=== PATIENT | male | born 1995 | race Caucasian/White ===

== ENCOUNTER 2016-10-05 21:35 | Emergency (ER) | payer MEDICAID, OTHER ==
[~2016-10-05] VITALS: Ht 165.1 cm; Wt 72.0 kg
[~2016-10-05 21:35] MED LIST: ACET325T33 PO; ACET500C5 PO; ALPR0.25 PO; FIORICET PO; HYDR-3498 PO; HYDR-3720 PO; IBUP-1542 PO; IBUP800T25 PO
[2016-10-05 21:38] VITALS: Ht 165.1 cm; Wt 72.0 kg
[2016-10-05] MEDS ORDERED: NAPR-260 PO (21:51)
[2016-10-05] MEDS ORDERED: IBUP-1542 PO (21:54)
--- NOTE | 2016-10-05 22:04 | ERD ---
ER Documentation Chief Complaint Date/Time DATE: 10/05/16 TIME: 21:57 Chief Complaint pain/swelling right forearm x 1 week. denies injury HPI 20-year-old male presents to ED with chief complaint of right forearm and thumb pain times one week. He denies any recent trauma or injury. Associated symptoms include some mild swelling around his forearm. States the pain is aggravated by moving his arm and washing dishes at work. 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 He denies fever, chills, redness, numbness, and loss of range of motion. Currently rates his pain a 5 out of 10 in severity. Has not tried any medications for relief of symptoms. ROS All systems reviewed and are negative except as per history of present illness. Medications Home Meds Active Scripts Ibuprofen* (Motrin*) 600 Mg Tab, 600 MG PO Q6, #30 TAB Prov:Christelle Perez PA-C 10/05/16 Naproxen* (Naprosyn*) 500 Mg Tablet, 500 MG PO BID Y for PAIN AND/OR INFLAMMATION, #30 TAB Prov:Christelle Perez PA-C 10/05/16 Acetaminophen* (Tylenol*) 325 Mg Tablet, 2 TAB PO Q8 Y for PAIN AND OR ELEVATED TEMP, #20 TAB Prov:MORTEZACHUCK DO 10/01/15 Ibuprofen* (Motrin*) 600 Mg Tab, 600 MG PO Q8, #10 TAB Prov:MORTEZACHUCK DO 10/01/15 Ibuprofen* (Motrin*) 800 Mg Tab, 800 MG PO Q6H Y for PAIN AND OR ELEVATED TEMP, #30 TAB Prov:RAH BHARDWAJ COMMANDING OFFICER [employer] 09/19/15 Alprazolam* (Xanax*) 0.25 Mg Tablet, 0.25 MG PO Q8H Y for ANXIETY, #10 TAB Prov:JYOTIOS,APOSTOLOS A. DO 09/05/15 Hydrocodone Bit-Acetaminophen* ([place]*) 7.5-325 Tablet, 1 TAB PO Q4H Y for PAIN , #14 TAB Prov:LEKKOS,APOSTOLOS A. DO 09/05/15 Acetamin/Butalbital/Caffeine* (Fioricet*) 1 Tab Tab, 1 TAB PO Q4H Y for PAIN LEVEL 1-5, #30 TAB Prov:CUISAUROLEILANI ODESSA Jain COMMANDING OFFICER [employer] 06/15/15 Acetamin/Butalbital/Caffeine* (Fioricet*) 1 Tab Tab, 1 TAB PO Q4H Y for PAIN LEVEL 1-5, #10 TAB Prov:SANJUANITA SORIA PA-C 06/15/15 Hydrocodone Bit-Acetaminophen* ([place]*) 5-325 Mg Tab, 1 TAB PO Q6 Y for PAIN, # 3 TAB Prov:SANJUANITA SORIA PA-C 06/15/15 Acetaminophen* (Tylophen*) 500 Mg Capsule, 1 CAP PO Q6H Y for PAIN AND OR ELEVATED TEMP, #20 CAP Prov:XIMENA VIRK 01/23/15 Hydrocodone Bit-Acetaminophen* ([place]*) 5-325 Mg Tab, 1 TAB PO Q6 Y for PAIN, # 7 TAB Prov:XIMENA VIRK 01/23/15 Allergies Allergies: Coded Allergies: No Known Allergy (Unverified , 10/05/16) PMhx/Soc History of Surgery: No Anesthesia Reaction: No Hx Neurological Disorder: No Hx Respiratory Disorders: No Hx Cardiac Disorders: No Hx Psychiatric Problems: No Hx Miscellaneous Medical Probl: Yes (frequent headaches for past 10 months) Hx Alcohol Use: Yes (occassional) Hx Substance Use: No Hx Tobacco Use: No Physical Exam Vitals Vital Signs Date Time Temp Pulse Resp B/P Pulse Ox O2 Delivery O2 Flow Rate FiO2 10/05/16 21:38 97.9 87 20 115/63 98 Physical Exam GENERAL: Non-toxic. No apparent signs of distress. LUNGS: Clear to auscultation. No accessory muscle use. No wheezing, no crackles. No signs or symptoms of respiratory distress. HEART: Regular rate and rhythm. No murmurs, clicks, rubs or gallops. EXTREMITIES: No peripheral cyanosis or edema. No focal pain or notable trauma. Full range of motion. Good capillary refill. Mountainous palpation over right distal forearm. Positive Silvia's test on right side. 2+ radial pulses, full sensation intact in bilateral upper extremities. Equal coating and embossing unit operator strength bilaterally. NEURO: The patient moves all 4 extremities with 5/5 strength. Cranial nerves are grossly intact. Normal mental status for age. Good muscle tone. SKIN: There is no apparent rash, petechiae, erythema or swelling. Good skin turgor. Procedures/MDM Patient complains of pain in his right forearm and thumb, his occupation as a driller helper. He denies any recent trauma or injury. Pain is aggravated when moving his arm repetitively or washing dishes. On examination he is full range of motion in bilateral upper extremities including elbows wrists and hands. Equal bilateral coating and embossing unit operator strength. 2+ radial pulse, good cap refill, and sensation is intact. There are no obvious evidence of trauma, no ecchymosis, no erythema, no swelling. Denies fevers and chills. Based on patient's history and physical exam findings including a positive Silvia test, symptoms are likely due to tenosynovitis. I've explained to the patient that this is often caused by repetitive arm and hand movements. Suggested use of a Velcro wrist splint or Jose Luis wrap, NSAIDs and limitations of repetitive arm/hand movements when possible outside of work. At this time was suspicion for cellulitis, osteomyelitis, fracture, dislocation , compartment syndrome, and neurovascular compromise. Patient given Rx for naproxen and ibuprofen. Strict return precautions discussed. At this time patient is stable for discharge and outpatient management. Advised to follow-up with PCP or outpatient clinic in 1-2 days, list of clinics provided. Departure Diagnosis: Primary Impression: Pain of right arm Additional Impression: Tenosynovitis of forearm Condition: Good Patient Instructions: What Is [place] Tenosynovitis? Referrals: [facility] YOU HAVE RECEIVED A MEDICAL SCREENING EXAM AND THE RESULTS INDICATE THAT YOU DO NOT HAVE A CONDITION THAT REQUIRES URGENT TREATMENT IN THE EMERGENCY DEPARTMENT. FURTHER EVALUATION AND TREATMENT OF YOUR CONDITION CAN WAIT UNTIL YOU ARE SEEN IN YOUR DOCTORS OFFICE WITHIN THE NEXT 1-2 DAYS. IT IS YOUR RESPONSIBILITY TO MAKE AN APPOINTMENT FOR FOLOW-UP CARE. IF YOU HAVE A PRIMARY DOCTOR --you should call your primary doctor and schedule an appointment IF YOU DO NOT HAVE A PRIMARY DOCTOR YOU CAN CALL OUR PHYSICIAN REFERRAL HOTLINE AT IF YOU CAN NOT AFFORD TO SEE A PHYSICIAN YOU CAN CHOSE FROM THE FOLLOWING [facility] [address] [facility]. [facility] [address] [facility] [address] [facility] [address] [facility] [address] [facility]. [facility] [address] Additional Instructions: Call your primary care doctor TOMORROW for an appointment during the next 1-2 days.See the doctor sooner or return here if your condition worsens before your appointment time. Christelle Perez PA-C Oct 05, 2016 22:04
== END 2016-10-05 21:54 | disposition home or self-care (01) ==
LOC: E/R 21:35
DX: M79.601 Pain in right arm (principal); M65.9 Synovitis and tenosynovitis, unspecified
CPT/HCPCS: 99283

== ENCOUNTER 2016-10-14 03:16 | Emergency (ER) | payer MEDICAID ==
[~2016-10-14] VITALS: Ht 165.1 cm; Wt 73.0 kg
[~2016-10-14 03:16] MED LIST changes: +NAPR-260 PO
[2016-10-14 03:21] VITALS: Ht 165.1 cm; Wt 73.0 kg
[2016-10-14] MEDS ORDERED: SULF1TAB31 PO (03:38)
[2016-10-14] MEDS ORDERED: FLUC150T17 PO (03:38)
[2016-10-14] MEDS ORDERED: CEPH-443 PO (03:38)
[2016-10-14] MEDS ORDERED: CLOT30CR24 TOP (03:38)
--- NOTE | 2016-10-14 03:49 | ERD ---
ER Documentation Chief Complaint Date/Time DATE: 10/14/16 TIME: 03:44 Chief Complaint pain/scab left foot x 10 days HPI 20-year-old male presents here in emergency department for complaints of wounds in between the webs of the toes of the left foot, some lesions and scabs, and platelets of pain on affected area, burning pain, 8/10 scale, is worse upon touching the area. Patient wears tight shoes, is moist toes most of the time. Patient took ibuprofen and naproxen for pain with mild relief. Patient denies any numbness or tingling. ROS All systems reviewed and are negative except as per history of present illness. Medications Home Meds Active Scripts Cephalexin* (Keflex*) 500 Mg Capsule, 500 MG PO QID for 10 Days, CAP Prov:LEILANI STEWART NP 10/14/16 Sulfamethoxazole/Trimethoprim* (Bactrim Ds* Tablet) 1 Each Tablet, 1 TAB PO BID , #20 TAB Prov:LEILANI STEWART NP 10/14/16 Fluconazole* (Diflucan*) 150 Mg Tablet, 150 MG PO ONCE, #1 TAB Prov:LEILANI STEWART NP 10/14/16 Clotrimazole* (Clotrimazole* AF) 1% - 30 Gm Cream.gm., 1 APPLIC TOP BID for 7 Days, TUB Prov:LEILANI STEWART NP 10/14/16 Ibuprofen* (Motrin*) 600 Mg Tab, 600 MG PO Q6, #30 TAB Prov:Christelle Perez PA-C 10/05/16 Naproxen* (Naprosyn*) 500 Mg Tablet, 500 MG PO BID Y for PAIN AND/OR INFLAMMATION, #30 TAB Prov:Christelle Perez PA-C 10/05/16 Acetaminophen* (Tylenol*) 325 Mg Tablet, 2 TAB PO Q8 Y for PAIN AND OR ELEVATED TEMP, #20 TAB Prov:CUHCK PRO DO 10/01/15 Ibuprofen* (Motrin*) 600 Mg Tab, 600 MG PO Q8, #10 TAB Prov:CHUCK PRO DO 10/01/15 Ibuprofen* (Motrin*) 800 Mg Tab, 800 MG PO Q6H Y for PAIN AND OR ELEVATED TEMP, #30 TAB Prov:BENTONRAH X. SIGNAL OPERATOR TECHNICAL 09/19/15 Alprazolam* (Xanax*) 0.25 Mg Tablet, 0.25 MG PO Q8H Y for ANXIETY, #10 TAB Prov:MYRON ENRIQUEZ. DO 09/05/15 Hydrocodone Bit-Acetaminophen* ([place]*) 7.5-325 Tablet, 1 TAB PO Q4H Y for PAIN , #14 TAB Prov:IGGY ENRIQUEZSTOLOS A. DO 09/05/15 Acetamin/Butalbital/Caffeine* (Fioricet*) 1 Tab Tab, 1 TAB PO Q4H Y for PAIN LEVEL 1-5, #30 TAB Prov:LEILANI STEWART SIGNAL OPERATOR TECHNICAL 06/15/15 Acetamin/Butalbital/Caffeine* (Fioricet*) 1 Tab Tab, 1 TAB PO Q4H Y for PAIN LEVEL 1-5, #10 TAB Prov:SANJUANITA SORIA PA-C 06/15/15 Hydrocodone Bit-Acetaminophen* ([place]*) 5-325 Mg Tab, 1 TAB PO Q6 Y for PAIN, # 3 TAB Prov:SANJUANITA SORIA PA-C 06/15/15 Acetaminophen* (Tylophen*) 500 Mg Capsule, 1 CAP PO Q6H Y for PAIN AND OR ELEVATED TEMP, #20 CAP Prov:XIMENA VIRK 01/23/15 Hydrocodone Bit-Acetaminophen* ([place]*) 5-325 Mg Tab, 1 TAB PO Q6 Y for PAIN, # 7 TAB Prov:XIMENA VIRK 01/23/15 Allergies Allergies: Coded Allergies: No Known Allergy (Unverified , 10/05/16) PMhx/Soc Medical and Surgical Hx: pt denies Medical Hx, pt denies Surgical Hx History of Surgery: No Anesthesia Reaction: No Hx Neurological Disorder: No Hx Respiratory Disorders: No Hx Cardiac Disorders: No Hx Psychiatric Problems: No Hx Miscellaneous Medical Probl: Yes (frequent headaches for past 10 months) Hx Alcohol Use: Yes (occassional) Hx Substance Use: Yes (MARIJUANA) Hx Tobacco Use: No Smoking Status: Never smoker FmHx Family History: No coronary disease, No diabetes, No other Physical Exam Vitals Vital Signs Date Time Temp Pulse Resp B/P Pulse Ox O2 Delivery O2 Flow Rate FiO2 10/14/16 03:21 98.6 89 20 100/55 97 Physical Exam GENERAL: The patient is well developed and appropriate for usual state of health, in no apparent distress. CHEST: Clear to auscultation bilaterally. There are no rales, wheezes or rhonchi. HEART: Regular rate and rhythm. No murmurs, clicks, rubs or gallops. No S3 or S4. ABDOMEN: Soft, nontender and nondistended. Good bowel sounds. No rebound or guarding. No gross peritonitis. No gross organomegaly or masses. No Mcelroy sign or McBurney point tenderness. BACK: No midline or flank tenderness. EXTREMITIES: Equal pulses bilaterally. There is no peripheral clubbing, cyanosis or edema. No focal swelling or erythema. Full range of motion. Grossly neurovascularly intact. NEURO: Alert and oriented. Cranial nerves 2-12 intact. Motor strength in all 4 extremities with 5/5 strength. Sensation grossly intact. Normal speech and gait. SKIN: Noted maceration of the skin of the left foot, and was of the toes of the left foot, with erythema surrounding the area, tender on palpation. No fluctuance, no purulent discharge. There is no apparent ecchymosis or petechia. The skin is warm and dry. HEMATOLOGIC AND LYMPHATIC: There is no evidence of excessive bruising or lymphedema. No gross cervical, axillary, or inguinal lymphadenopathy. Procedures/MDM Medical decision making: Patient symptoms at that it consistent with tinea pedis , fungal infection, with secondary infection cellulitis. Patient was treated with Diflucan, clotrimazole 1% Cream, Bactrim, Keflex, Is Advised to Continue Taking ibuprofen for pain, no symptoms of neurovascular compromise, no symptoms of sepsis at this time. Patient appears well and is hemodynamically stable. Patient advised to follow with primary doctor 2-3 days, return to emergency department for any worsening symptoms, avoid wearing close shoes in the next few days. Departure Diagnosis: Primary Impression: Tinea pedis Laterality: left Qualified Code: B35.3 - Tinea pedis of left foot Additional Impression: Cellulitis Site of cellulitis: extremity Site of cellulitis of extremity: lower extremity Laterality: left Qualified Code: L03.116 - Cellulitis of left lower extremity Condition: Stable Patient Instructions: Cellulitis, Athlete'S Foot LEILANI STEWART NP Oct 14, 2016 03:49
[2016-10-14 04:03] VITALS: BP 100/50; PULSE 82; RESP 20; TEMP 98.6
== END 2016-10-14 04:03 | disposition home or self-care (01) ==
LOC: FTE 03:16
DX: B35.3 Tinea pedis (principal); L03.116 Cellulitis of left lower limb
CPT/HCPCS: 99284

== ENCOUNTER 2016-12-26 12:36 | Emergency (ER) | payer MEDICAID, OTHER ==
[~2016-12-26] VITALS: Wt 70.0 kg
[~2016-12-26 12:36] MED LIST changes: +CEPH-443 PO; +CLOT30CR24 TOP; +FLUC150T17 PO; +SULF1TAB31 PO
[2016-12-26] MEDS ORDERED: KETOROLAC 60 MG INJ IM STA (12:45)
[2016-12-26 12:57] LABS: URINE BLOOD (Dip) POC Negative (NEGATIVE)
[2016-12-26] MEDS ORDERED: HYDROCODONE/APAP (5/325) TAB PO ONE (13:00)
[2016-12-26] MEDS ORDERED: PRED20TA PO (13:25)
[2016-12-26] MEDS ORDERED: TRAM50TA2 PO (13:25)
[2016-12-26] MEDS ORDERED: IBUP-1542 PO (13:25)
--- NOTE | 2016-12-26 13:28 | ERD ---
ER Documentation Chief Complaint Date/Time DATE: 12/26/16 TIME: 13:26 Chief Complaint LOW BACK PAIN FOR A FEW WKS WITH NO RECENT TRAUMA. NO NEURO DEF HPI 21-year-old male complains of a few week history of low back pain. He says it started after lifting weights and he felt a pop. He does have a history of intermittent low back pain usually worse with lifting or movement. Denies any bowel or bladder incontinence, fevers, urinary complaints. ROS All systems reviewed and are negative except as per history of present illness. Medications Home Meds Active Scripts Ibuprofen* (Motrin*) 600 Mg Tab, 600 MG PO Q6, #20 TAB Prov:KRISTEN HUITRON MD 12/26/16 Prednisone* (Prednisone*) 20 Mg Tab, 40 MG PO DAILY for 4 Days, TAB Prov:KRISTEN HUITRON MD 12/26/16 Tramadol HCl (Tramadol HCl) 50 Mg Tablet, 50 MG PO Q4 Y for PAIN, #20 TAB Prov:KRISTEN HUITRON MD 12/26/16 Cephalexin* (Keflex*) 500 Mg Capsule, 500 MG PO QID for 10 Days, CAP Prov:LEILANI STEWART NP 10/14/16 Sulfamethoxazole/Trimethoprim* (Bactrim Ds* Tablet) 1 Each Tablet, 1 TAB PO BID , #20 TAB Prov:LEILANI STEWART NP 10/14/16 Fluconazole* (Diflucan*) 150 Mg Tablet, 150 MG PO ONCE, #1 TAB Prov:LEILANI STEWART NP 10/14/16 Clotrimazole* (Clotrimazole* AF) 1% - 30 Gm Cream.gm., 1 APPLIC TOP BID for 7 Days, TUB Prov:LEILANI STEWART NP 10/14/16 Ibuprofen* (Motrin*) 600 Mg Tab, 600 MG PO Q6, #30 TAB Prov:Christelle Perez PA-C 10/05/16 Naproxen* (Naprosyn*) 500 Mg Tablet, 500 MG PO BID Y for PAIN AND/OR INFLAMMATION, #30 TAB Prov:Christelle Perez PA-C 10/05/16 Acetaminophen* (Tylenol*) 325 Mg Tablet, 2 TAB PO Q8 Y for PAIN AND OR ELEVATED TEMP, #20 TAB Prov:MORTEZASAIGECHUCK DO 10/01/15 Ibuprofen* (Motrin*) 600 Mg Tab, 600 MG PO Q8, #10 TAB Prov:MORTEZA,CHUCK DO 10/01/15 Ibuprofen* (Motrin*) 800 Mg Tab, 800 MG PO Q6H Y for PAIN AND OR ELEVATED TEMP, #30 TAB Prov:RAH BHARDWAJ CALENDER RUNNER 09/19/15 Alprazolam* (Xanax*) 0.25 Mg Tablet, 0.25 MG PO Q8H Y for ANXIETY, #10 TAB Prov:LEKKOS,APOSTOLOS A. DO 09/05/15 Hydrocodone Bit-Acetaminophen* ([place]*) 7.5-325 Tablet, 1 TAB PO Q4H Y for PAIN , #14 TAB Prov:LEKKOS,APOSTOLOS A. DO 09/05/15 Acetamin/Butalbital/Caffeine* (Fioricet*) 1 Tab Tab, 1 TAB PO Q4H Y for PAIN LEVEL 1-5, #30 TAB Prov:LEILANI STEWART CALENDER RUNNER 06/15/15 Acetamin/Butalbital/Caffeine* ([place]et*) 1 Tab Tab, 1 TAB PO Q4H Y for PAIN LEVEL 1-5, #10 TAB Prov:SANJUANITA SORIA PA-C 06/15/15 Hydrocodone Bit-Acetaminophen* ([place]*) 5-325 Mg Tab, 1 TAB PO Q6 Y for PAIN, # 3 TAB Prov:SANJUANITA SORIA PA-C 06/15/15 Acetaminophen* (Tylophen*) 500 Mg Capsule, 1 CAP PO Q6H Y for PAIN AND OR ELEVATED TEMP, #20 CAP Prov:XIMENA VIRK 01/23/15 Hydrocodone Bit-Acetaminophen* ([place]*) 5-325 Mg Tab, 1 TAB PO Q6 Y for PAIN, # 7 TAB Prov:XIMENA VIRK 01/23/15 Allergies Allergies: Coded Allergies: No Known Allergy (Unverified , 12/26/16) PMhx/Soc History of Surgery: No Anesthesia Reaction: No Hx Neurological Disorder: No Hx Respiratory Disorders: No Hx Cardiac Disorders: No Hx Psychiatric Problems: No Hx Miscellaneous Medical Probl: No Hx Alcohol Use: Yes (occassional) Hx Substance Use: Yes (MARIJUANA) Hx Tobacco Use: No Smoking Status: Never smoker Physical Exam Vitals Vital Signs Date Time Temp Pulse Resp B/P Pulse Ox O2 Delivery O2 Flow Rate FiO2 12/26/16 12:38 98.8 61 20 121/60 99 Physical Exam Const: [] Alert, [id number] per Head: Atraumatic Eyes: Normal Conjunctiva ENT: Normal External Ears, Nose and Mouth. Neck: Full range of motion..~ No meningismus. Resp: Clear to auscultation bilaterally Cardio: Regular rate and rhythm, no murmurs Abd: Soft, non tender, non distended. Normal bowel sounds Skin: No petechiae or rashes Back: No midline or flank tenderness. There is some tenderness L4-5 paraspinous muscles. There is mildly positive straight leg raise bilaterally. Ext: No cyanosis, or edema Neur: Awake and alert. Patient is amatory without deficits or weakness. Psych: Normal Mood and Affect Results 24 hrs Laboratory Tests Test 12/26/16 13:01 Bedside Urine pH (LAB) 7.0 Bedside Urine Protein (LAB) Negative Bedside Urine Glucose (UA) Negative Bedside Urine Ketones (LAB) Negative Bedside Urine Blood Negative Bedside Urine Nitrite (LAB) Negative Bedside Urine Leukocyte Esterase (L Negative Current Medications Medications (Trade) Dose Ordered Sig/María Route PRN Reason Start Time Stop Time Status Last Admin Dose Admin Ketorolac Tromethamine (Toradol) 60 mg ONCE STAT IM 12/26/16 12:45 12/26/16 12:47 DC 12/26/16 12:50 Acetaminophen/ Hydrocodone Bitart ([place] (5/325)) 1 tab ONCE ONCE PO 12/26/16 13:00 12/26/16 13:01 DC 12/26/16 12:50 Procedures/MDM There is negative for blood, leukocytes, glucose. X-ray LS-Spine 3V Interpreted by me: Bones: No fracture, or lytic lesions Joints: No dislocation Foreign body: None. Impression have normal lumbar spine x-ray Patient was given Toradol 60 mg IM and [place] 5 mg of mouth. Patient presents with low back pain which appears musculoskeletal without signs or symptoms to suggest epidural abscess, cauda equina syndrome, fracture, dislocation, neurologic deficit. We treated with tramadol and a short course of prednisone at home as well as ibuprofen instructions for back exercises. The patient was stable with no new complaints during the ER course. Clinically, there is no current evidence to suggest meningitis, sepsis, acute abdomen, pneumonia, acute coronary syndrome, pulmonary embolism, or any other emergent condition appearing to require further evaluation or hospitalization. The patient should certainly return for any new or worsening symptoms per the aftercare instructions. They should otherwise follow-up with her primary care doctor for reevaluation this week. Departure Diagnosis: Primary Impression: Back pain Back pain location: low back pain Chronicity: unspecified Back pain laterality: bilateral Sciatica presence: with sciatica Sciatica laterality: sciatica laterality unspecified Qualified Code: M54.40 - Bilateral low back pain with sciatica, sciatica laterality unspecified, unspecified chronicity Patient Instructions: Back Pain (Acute Or Chronic) Additional Instructions: X-ray appears normal. Recommend stretching and exercise at home. Recheck with primary doctor or for new or worsening symptoms KRISTEN HUITRON MD Dec 26, 2016 13:28
--- NOTE | 2016-12-26 13:41 | RADRPT ---
PROCEDURE: Lumbar spine series CLINICAL INDICATION: Pain TECHNIQUE: AP, lateral and coned lateral images of the lumbar spine were obtained. COMPARISON: None FINDINGS: There is no evidence of acute fractures or subluxations. The bony mineralization is normal. No foc al bony blastic or lytic lesions. The posterior elements are intact. IMPRESSION: Negative lumbar spine series. RPTAT:AAJJ Physician [place] Date Time Electronically viewed and signed by Frederic Norman Physician on 12/26/2016 13:40 /
== END 2016-12-26 13:47 | disposition home or self-care (01) ==
LOC: FTE 12:36
DX: M54.40 Lumbago with sciatica, unspecified side (principal)
CPT/HCPCS: 72100; 81003; J1885; Z7610; 96372

== ENCOUNTER 2018-03-03 20:38 | Emergency (ER) | END 2018-03-03 23:33 | disposition home or self-care (01) ==

== ENCOUNTER 2018-03-06 19:20 | Emergency (ER) | END 2018-03-06 20:35 | disposition home or self-care (01) ==

== ENCOUNTER 2018-12-03 22:07 | Emergency (ER) | payer OTHER ==
[~2018-12-03] VITALS: Ht 167.6 cm; Wt 74.1 kg
[~2018-12-03 22:07] MED LIST changes: +BACI28.34 TOP; +FLUC150T PO; -FLUC150T17 PO; +HYDR-4011 PO; -IBUP800T25 PO; +IBUP800T48 PO; -NAPR-260 PO; +NAPR-985 PO; +PRED20TA PO; +TRAM50TA2 PO
[2018-12-03 22:09] VITALS: BP 118/72; PULSE 94; RESP 18; Ht 167.6 cm; Wt 74.1 kg
[2018-12-04] MEDS ORDERED: CLOT30CR24 TOP (00:20)
[2018-12-04] MEDS ORDERED: NAPR-985 PO (00:20)
[2018-12-04] MEDS ORDERED: IBUP800T48 PO (00:20)
--- NOTE | 2018-12-04 00:32 | ERD ---
ER Documentation Chief Complaint Chief Complaint BILAT FOOT PAIN X'S 1 MONTH HPI 22-year-old male with no reported past medical history who presents with complaint of bilateral foot pain over the past month. Has noticed "fungal" type rash to the sole of right foot and between toes of bilateral feet. States he got [id number] cream about a month ago which did not help much with his symptoms, unable to recall name of cream. 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 States he has sweaty feet. Also with complaint of back pain but he otherwise denies radiation of pain to lower extremities, lower extremity weakness or paresthes ias, urinary or bowel incontinence. He denies any recent fall or trauma. Time examination patient nontoxic appearing able to walk throughout examination room with normal gait and without pain complaint. ROS All systems reviewed and are negative except as per history of present illness. Medications Home Meds Active Scripts Ibuprofen* (Motrin*) 800 Mg Tab, 800 MG PO Q6, #30 TAB Prov:LORENA SMITH PA-C 12/04/18 Naproxen* (Naprosyn*) 500 Mg Tablet, 500 MG PO BID PRN for PAIN AND/OR INFLAMMATION, #30 TAB Prov:LORENA SMITH PA-C 12/04/18 Clotrimazole* (Clotrimazole* AF) 1% - 30 Gm Cream.gm., 1 APPLIC TOP BID for 21 Days, TUB Prov:LORENA SMITHC 12/04/18 Hydrocodone/Acetaminophen (Wiota 5-325 Tablet) 1 Each Tablet, 1 TAB PO Q6H PRN for PAIN, #7 TAB Prov:RUBEN THOMAS PA-C 03/06/18 Cephalexin* (Keflex*) 500 Mg Capsule, 500 MG PO QID for 5 Days, CAP Prov:RUBEN THOMAS-Basia 03/06/18 Hydrocodone/Acetaminophen (Wiota 5-325 Tablet) 1 Each Tablet, 1 TAB PO Q6H PRN for PAIN, #7 TAB Prov:DOUGLAS ANGLIN PA-C 03/03/18 Ibuprofen* (Motrin*) 600 Mg Tab, 600 MG PO Q6, #30 TAB Prov:DOUGLAS ANGLINC 03/03/18 Bacitracin* (Bacitracin Zinc Oint*) 28.35 Gm Oint, 1 APPLIC TOP TID, #1 TUB APPLY TO Prov:DOUGLAS ANGLIN PA-C 03/03/18 Ibuprofen* (Motrin*) 600 Mg Tab, 600 MG PO Q6, #20 TAB Prov:KRISTEN HUITRON MD 12/26/16 Prednisone* (Prednisone*) 20 Mg Tab, 40 MG PO DAILY for 4 Days, TAB Prov:KRISTEN HUITRON MD 12/26/16 Tramadol HCl (Tramadol HCl) 50 Mg Tablet, 50 MG PO Q4 PRN for PAIN, #20 TAB Prov:KRISTEN HUITRON MD 12/26/16 Cephalexin* (Keflex*) 500 Mg Capsule, 500 MG PO QID for 10 Days, CAP Prov:LEILANI STEWART NP 10/14/16 Sulfamethoxazole/Trimethoprim* (Bactrim Ds* Tablet) 1 Each Tablet, 1 TAB PO BID, #20 TAB Prov:LEILANI STEWART NP 10/14/16 Fluconazole* (Diflucan*) 150 Mg Tablet, 150 MG PO ONCE, #1 TAB Prov:LEILANI STEWART NP 10/14/16 Clotrimazole* (Clotrimazole* AF) 1% - 30 Gm Cream.gm., 1 APPLIC TOP BID for 7 Days, TUB Prov:LEILANI STEWART NP 10/14/16 Ibuprofen* (Motrin*) 600 Mg Tab, 600 MG PO Q6, #30 TAB Prov:Christelle Perez PA-C 10/05/16 Naproxen* (Naprosyn*) 500 Mg Tablet, 500 MG PO BID PRN for PAIN AND/OR INFLAMMATION, #30 TAB Prov:Christelle Perez PA-C 10/05/16 Acetaminophen* (Tylenol*) 325 Mg Tablet, 2 TAB PO Q8 PRN for PAIN AND OR ELEVATED TEMP, #20 TAB Prov:CHUCK PRO DO 10/01/15 Ibuprofen* (Motrin*) 600 Mg Tab, 600 MG PO Q8, #10 TAB Prov:CHUCK PRO DO 10/01/15 Ibuprofen* (Motrin*) 800 Mg Tab, 800 MG PO Q6H PRN for PAIN AND OR ELEVATED TEMP, #30 TAB Prov:BENTON,RAH X. TODDLER GUIDE 09/19/15 Alprazolam* (Xanax*) 0.25 Mg Tablet, 0.25 MG PO Q8H PRN for ANXIETY, #10 TAB Prov:MYRON ENRIQUEZ. DO 09/05/15 Hydrocodone Bit-Acetaminophen* (Wiota*) 7.5-325 Tablet, 1 TAB PO Q4H PRN for PAIN, #14 TAB Prov:MYRON ENRIQUEZ DO 09/05/15 Acetamin/Butalbital/Caffeine* (Fioricet*) 1 Tab Tab, 1 TAB PO Q4H PRN for PAIN LEVEL 1-5, #30 TAB Prov:LEILANI STWEART TODDLER GUIDE 06/15/15 Acetamin/Butalbital/Caffeine* (Fioricet*) 1 Tab Tab, 1 TAB PO Q4H PRN for PAIN LEVEL 1-5, #10 TAB Prov:SANJUANITA SORIA PA-C 06/15/15 Hydrocodone Bit-Acetaminophen* (Wiota*) 5-325 Mg Tab, 1 TAB PO Q6 PRN for PAIN, #3 TAB Prov:SANJUANITA SORIA PA-C 06/15/15 Acetaminophen* (Tylophen*) 500 Mg Capsule, 1 CAP PO Q6H PRN for PAIN AND OR ELEVATED TEMP, #20 CAP Prov:XIMENA VIRK 01/23/15 Hydrocodone Bit-Acetaminophen* (Wiota*) 5-325 Mg Tab, 1 TAB PO Q6 PRN for PAIN, #7 TAB Prov:XIMENA VIRK 01/23/15 Allergies Allergies: Coded Allergies: No Known Allergy (Unverified , 12/26/16) PMhx/Soc Medical and Surgical Hx: pt denies Medical Hx, pt denies Surgical Hx History of Surgery: No Anesthesia Reaction: No Hx Neurological Disorder: No Hx Respiratory Disorders: No Hx Cardiac Disorders: No Hx Psychiatric Problems: No Hx Miscellaneous Medical Probl: No Hx Alcohol Use: Yes (occassional) Hx Substance Use: Yes (MARIJUANA) Hx Tobacco Use: No Smoking Status: Never smoker FmHx Family History: No diabetes, No coronary disease, No other Physical Exam Vitals Vital Signs Date Temp Pulse Resp B/P (MAP) Pulse Ox O2 O2 Flow FiO2 Time Delivery Rate 12/03/18 99.0 94 18 118/72 97 22:09 (87) Physical Exam I have reviewed the triage vital signs. Const: Well nourished, well developed, appears stated age Eyes: PERRL, no conjunctival injection HENT: NCAT, Neck supple without meningismus CV: RRR, Warm, well-perfused extremities RESP: CTAB, Unlabored respiratory effort GI: soft, non-tender, non-distended, no masses MSK: No gross deformities appreciated Skin: Bilateral feet odiferous, damp appearing, interdigital maceration at webspaces, right foot dorsum with scaling plaque to anterior surface of left sole Neuro: grossly non focal Psych: Appropriate mood and affect. Procedures/MDM Patient presents with bilateral foot pain with symptoms and physical exam findings consistent with athlete's foot. Patient is afebrile and I have low suspicion for systemic infection warranting further emergent care or work-up. Risk factors such as diabetes. His back pain is chronic and he has no red flag symptoms warranting further emergent care work-up. We will discharge with extended course of clotrimazole, despite scaling noted at the sole of 1 foot I feel he would may not require systemic antifungals at this point, patient is been advised to follow-up with PMD to monitor resolution, appropriate pain medications DISPOSITION PLAN: We discussed follow up with the patient's primary care doctor within 24 to 48 hours. Patient counseled regarding my diagnostic impression and care plan. Prior to discharge all questions answered. Pt agrees with treatment plan and und erstands strict return precautions. Precautionary instructions provided including instructions to return to the ER if not improving or for any worsening or changing symptoms or concerns. Disclaimer: Inadvertent spelling and grammatical errors are likely due to EHR/dictation software use and do not reflect on the overall quality of patient care. Also, please note that the electronic time recorded on this note does not necessarily reflect the actual time of the patient encounter. Departure Diagnosis: Primary Impression: Foot pain Condition: Stable Patient Instructions: Athlete'S Foot Referrals: OMAR SALAS (PCP) Additional Instructions: Call your primary care doctor TOMORROW for an appointment during the next 2-3 days.See the doctor sooner or return here if your condition worsens before your appointment time. LORENA SMITH PA-C Dec 04, 2018 00:32
== END 2018-12-04 00:31 | disposition home or self-care (01) ==
LOC: FTE 22:07
DX: M79.671 Pain in right foot (principal); M79.672 Pain in left foot
CPT/HCPCS: 99282